=== PATIENT | female | born 1985 | race Hispanic/Latino ===

== ENCOUNTER 2020-11-07 09:23 | Outpatient (CLI) | payer BC | END 2020-11-07 09:24 | disposition home or self-care (01) | LOC: BICMAMMO 09:23 | PROVIDERS: ATTEND Family Medicine | DX: N63.11 Unspecified lump in the right breast, upper outer quadrant (principal); N63.22 Unspecified lump in the left breast, upper inner quadrant | CPT/HCPCS: 77066; G0279 ==